=== PATIENT | female | born 1955 | race Caucasian/White ===

== ENCOUNTER 2016-11-21 10:45 | Inpatient (IN) | payer OTHER ==
[~2016-11-21 10:45] MED LIST: ALLERGY10 M3 PO; CIPRO500 M2 PO; DIFLUCAN100 M1 PO; GRANISETRON HCL PO; LASIX20 M1 PO; LORAZEPAM0.5 M1 PO; MIDODRINE HCL10 M1 PO; ONDANSETRON HCL8 M1 PO; POTASSIUM CHLO10 ME1 PO; PROCHLORPERAZIN10 M1 PO; SYNTHROID88 MC1 PO; [UNRECOGNIZED DRUG - OTHER] PO
[2016-11-21] MEDS ORDERED: ALDACTONE25 M1 PO (11:13)
[2016-11-21 12:00] LABS: BASO % 0.9 % (0-2); EOS % 2.2 % (0-7); EOSINOPHIL ABSOLUTE COUNT 0.1 tho/cmm (0.0-0.7); HCT-HEMATOCRIT 35.1 % (34.0-49.0); HGB-HEMOGLOBIN 11.4 gm/dl (12.0-15.5); IMMATURE GRANULOCYTES ABSOLUTE 0.03 tho/cmm (0-0.03); IMMATURE GRANULOCYTES PERCENT 0.9 % (0-0.3); LYMPH % 16.6 % (20-45); LYMPH ABSOLUTE COUNT 0.5 tho/cmm (0.8-4.5); MCH (MEAN CORPUSCULAR HGB) 30.6 pg (28.0-32.0); MCHC MEAN CORPUSCULAR HGB CONC 32.5 % (32.0-36.0); MCV (MEAN CELL VOLUME) 94.4 fl (82.0-96.0); MEAN PLATELET VOLUME 9.5 cmc (9.4-12.4); MONO % 12.9 % (0-12); MONOCYTE ABSOLUTE COUNT 0.4 tho/cmm (0.0-1.2); NEUTROPHIL ABSOLUTE COUNT 2.1 tho/cmm (1.6-8.0); NEUTROPHIL-AUTOMATED 2.1 tho/cmm (1.6-8.0); NEUTROPHILS % 66.5 % (40-80); PLATELET COUNT 96 tho/cmm (150-450); RED BLOOD COUNT 3.72 mil/cmm (4.00-5.20); RED CELL DISTRIBUTION WIDTH 15.9 % (12.4-16.4); WHITE BLOOD COUNT 3.2 tho/cmm (4.0-10.0)
[2016-11-21] MEDS ORDERED: POTASSIUM CHLO20 ME3 PO (12:27)
[2016-11-21] MEDS ORDERED: MIDODRINE HCL10 M1 PO (12:28)
[2016-11-21 12:29] LABS: ALB/GLOB RATIO 1.1 (0.8-2.0); ALBUMIN 3.7 g/dl (3.5-5.0); ALKALINE PHOSPHATASE 133 U/L (33-138); ALT/SGPT 16 U/L (12-78); ANION GAP 9 mmol/L (0-20); AST/SGOT 33 U/L (10-40); BILIRUBIN,TOTAL 1.4 mg/dl (0-1.5); BLOOD UREA NITROGEN 22 mg/dl (6-24); CALCIUM 9.1 mg/dl (8.5-10.5); CARBON DIOXIDE-VENOUS 32 mmol/L (22-32); CHLORIDE 105 mmol/l (96-110); CREATININE 0.66 mg/dl (0.50-1.10); GLUCOSE 76 mg/dL (70-110); SODIUM 142 mmol/L (135-145); eGFR VALUE FOR BLACK >90 mL/Min
[2016-11-21 12:43] LABS: PROCALCITONIN <0.05 ng/ml (0.05-0.09)
[2016-11-21 13:33] LABS: URINE BILIRUBIN MODERATE (NEG); URINE BLOOD LARGE (NEG); URINE COLOR DARK YELLOW; URINE GLUCOSE (UA) NEGATIVE (NEG); URINE KETONE SMALL (NEG); URINE LEUKOCYTE ESTERASE POSITIVE (NEG); URINE NITRITE POSITIVE (NEG); URINE PROTEIN MODERATE (NEG)
[2016-11-21 13:34] LABS: URINE APPEARANCE HAZY
[2016-11-21 13:52] LABS: URINE MUCUS 2+; URINE RBC 100-150 /[HPF] (0-5)
[2016-11-21 15:34] LABS: INR 1.1 INR (0.9-1.1); PROTHROMBIN TIME 12.4 SECONDS (9.0-13.6)
--- NOTE | 2016-11-21 21:49 | NUR ---
Pt unable to breath well lying down or tipped back. She sleeps in recliner without her feet elevated. Enc elevating feet and pt refused stating she can't breath. BLE 4+ edema, pink and very tight skin. No weeping yet and no open areas. Skin all over body is flakey. Replaced her old compression sleeves with ours from feet to over the knee. Have feet slightly elevated and pt states it is ok for now.
[2016-11-22 03:43] LABS: BASO % 1.3 % (0-2); EOS % 1.6 % (0-7); EOSINOPHIL ABSOLUTE COUNT 0.1 tho/cmm (0.0-0.7); HCT-HEMATOCRIT 36.3 % (34.0-49.0); HGB-HEMOGLOBIN 11.6 gm/dl (12.0-15.5); IMMATURE GRANULOCYTES ABSOLUTE 0.01 tho/cmm (0-0.03); IMMATURE GRANULOCYTES PERCENT 0.3 % (0-0.3); LYMPH % 16.2 % (20-45); LYMPH ABSOLUTE COUNT 0.5 tho/cmm (0.8-4.5); MCH (MEAN CORPUSCULAR HGB) 30.4 pg (28.0-32.0); MCV (MEAN CELL VOLUME) 95.3 fl (82.0-96.0); MEAN PLATELET VOLUME 9.3 cmc (9.4-12.4); MONO % 13.1 % (0-12); MONOCYTE ABSOLUTE COUNT 0.4 tho/cmm (0.0-1.2); NEUTROPHIL ABSOLUTE COUNT 2.1 tho/cmm (1.6-8.0); NEUTROPHIL-AUTOMATED 2.1 tho/cmm (1.6-8.0); NEUTROPHILS % 67.5 % (40-80); PLATELET COUNT 107 tho/cmm (150-450); RED BLOOD COUNT 3.81 mil/cmm (4.00-5.20); WHITE BLOOD COUNT 3.1 tho/cmm (4.0-10.0)
[2016-11-22 03:51] LABS: ANION GAP 8 mmol/L (0-20); BLOOD UREA NITROGEN 22 mg/dl (6-24); CALCIUM 8.9 mg/dl (8.5-10.5); CARBON DIOXIDE-VENOUS 36 mmol/L (22-32); CHLORIDE 102 mmol/l (96-110); CREATININE 0.76 mg/dl (0.50-1.10); GLUCOSE 91 mg/dL (70-110); POTASSIUM 4.1 mmol/L (3.7-5.1); SODIUM 142 mmol/L (135-145); eGFR VALUE FOR BLACK >90 mL/Min
[2016-11-22 15:29] LABS: BODY FLUID APPEARANCE CLOUDY (CLEAR); BODY FLUID COLOR DARK YELLOW (COLORLESS); BODY FLUID RBC COUNT 4000 cmm (0); BODY FLUID VOLUME 900 ml; BODY FLUID WBC COUNT 112 cmm
[2016-11-22 16:50] LABS: BODY FLUID LYMPHOCYTES 19 %; BODY FLUID MACROPHAGES 79 %; BODY FLUID NEUTROPHILS 2 %
[2016-11-22 21:55] LABS: BODY FLUID TYPE THORACENTESIS
[2016-11-23 09:04] LABS: BODY FLUID TYPE PLEURAL; FLUID ALBUMIN 2.8 g/dl
[2016-11-23 09:05] LABS: BODY FLUID TYPE PLEURAL
[2016-11-23 10:02] LABS: HCT-HEMATOCRIT 35.1 % (34.0-49.0); HGB-HEMOGLOBIN 11.2 gm/dl (12.0-15.5); MCH (MEAN CORPUSCULAR HGB) 30.8 pg (28.0-32.0); MCHC MEAN CORPUSCULAR HGB CONC 31.9 % (32.0-36.0); MCV (MEAN CELL VOLUME) 96.4 fl (82.0-96.0); MEAN PLATELET VOLUME 9.3 cmc (9.4-12.4); PLATELET COUNT 97 tho/cmm (150-450); RED BLOOD COUNT 3.64 mil/cmm (4.00-5.20); RED CELL DISTRIBUTION WIDTH 16.1 % (12.4-16.4)
[2016-11-23 10:05] LABS: WHITE BLOOD COUNT 5.1 tho/cmm (4.0-10.0)
[2016-11-23 10:15] LABS: ANION GAP 10 mmol/L (0-20); BLOOD UREA NITROGEN 24 mg/dl (6-24); CALCIUM 9.1 mg/dl (8.5-10.5); CARBON DIOXIDE-VENOUS 34 mmol/L (22-32); CHLORIDE 101 mmol/l (96-110); CREATININE 0.84 mg/dl (0.50-1.10); GLUCOSE 78 mg/dL (70-110); POTASSIUM 4.6 mmol/L (3.7-5.1); SODIUM 140 mmol/L (135-145); eGFR VALUE FOR BLACK 86 mL/Min
[2016-11-23 11:03] LABS: BAND % 16 % (0-20); BAND ABSOLUTE COUNT 0.8 tho/cmm (0-2.0)
[2016-11-23 11:04] LABS: WBC MORPHOLOGY VACUOLES
[2016-11-24 07:22] LABS: BASO % 0.5 % (0-2); EOS % 0.5 % (0-7); HCT-HEMATOCRIT 35.5 % (34.0-49.0); HGB-HEMOGLOBIN 11.3 gm/dl (12.0-15.5); IMMATURE GRANULOCYTES ABSOLUTE 0.02 tho/cmm (0-0.03); IMMATURE GRANULOCYTES PERCENT 0.5 % (0-0.3); LYMPH % 8.6 % (20-45); LYMPH ABSOLUTE COUNT 0.4 tho/cmm (0.8-4.5); MCH (MEAN CORPUSCULAR HGB) 30.6 pg (28.0-32.0); MCHC MEAN CORPUSCULAR HGB CONC 31.8 % (32.0-36.0); MCV (MEAN CELL VOLUME) 96.2 fl (82.0-96.0); MEAN PLATELET VOLUME 9.5 cmc (9.4-12.4); MONO % 17.7 % (0-12); MONOCYTE ABSOLUTE COUNT 0.7 tho/cmm (0.0-1.2); NEUTROPHILS % 72.2 % (40-80); PLATELET COUNT 87 tho/cmm (150-450); RED BLOOD COUNT 3.69 mil/cmm (4.00-5.20); RED CELL DISTRIBUTION WIDTH 16.2 % (12.4-16.4); WHITE BLOOD COUNT 4.2 tho/cmm (4.0-10.0)
[2016-11-24 07:36] LABS: ANION GAP 10 mmol/L (0-20); BLOOD UREA NITROGEN 27 mg/dl (6-24); CALCIUM 9.3 mg/dl (8.5-10.5); CARBON DIOXIDE-VENOUS 33 mmol/L (22-32); CHLORIDE 99 mmol/l (96-110); CREATININE 0.84 mg/dl (0.50-1.10); GLUCOSE 92 mg/dL (70-110); POTASSIUM 4.7 mmol/L (3.7-5.1); SODIUM 137 mmol/L (135-145); eGFR VALUE FOR BLACK 86 mL/Min
--- NOTE | 2016-11-27 12:23 | NUR ---
BEFORE DC, SPOKE WITH NALINI HAWK THEN WITH SON AND HIS , VERONICA. PT SEEN WITH DR WHITNEY. FAMILY AWARE OF DC TIME, SPOKE WITH [facility] AND INFO FAXED TO THE [facility]. HOSPICE FORMS SIGNED BY DR WHITNEY. DR STEEL WILL BE THE HOSPICE DOCTOR. [facility]
== END 2016-11-27 11:10 | disposition hospice, inpatient (51) | DRG 186 ==
LOC: EDMED 10:45 → EMR2 14:38 → 5WF 16:42 → CCU 11-22 13:31 → 5WF 11-23 14:00
PROVIDERS: Emergency Medicine; Internal Medicine Pulmonary Disease; Nurse Practitioner; Radiology Diagnostic Radiology; ADMIT Internal Medicine
PROC: 0W993ZX Drainage of Right Pleural Cavity, Percutaneous Approach, Diagnostic (ICD-10-PCS; principal; 2016-11-21)
DX: J90 Pleural effusion, not elsewhere classified (principal); J96.01 Acute respiratory failure with hypoxia; C85.90 Non-Hodgkin lymphoma, unspecified, unspecified site; I95.9 Hypotension, unspecified; D61.818 Other pancytopenia; R60.1 Generalized edema; E03.9 Hypothyroidism, unspecified; F32.9 Major depressive disorder, single episode, unspecified; I25.10 Atherosclerotic heart disease of native coronary artery without angina pectoris; Z51.5 Encounter for palliative care; Z66 Do not resuscitate
CPT/HCPCS: J1940; J2060; Q9967